=== PATIENT | male | born 1995 | race African-American/Black ===

== ENCOUNTER 2020-11-10 11:23 | Inpatient (IN) | payer BC, OTHER ==
[2020-11-10] MEDS ORDERED: SODIUM CHLORIDE 1,000 ML IV STA ×2 (11:53→12:28)
[2020-11-10] MEDS ORDERED: ACETAMINOPHEN 1000 MG/100 ML VIAL (NON FORMULARY) IVPB ONE (11:53)
[2020-11-10] MEDS ORDERED: ACETAMINOPHEN INJECTION 100 ML IVPB ONE (12:33)
[2020-11-10 13:45] LABS: BASO % 0.6 % (0-2.0); HEMATOCRIT 44.7 % (35.4-49); HEMOGLOBIN 15.2 GM/dL (11.7-16.9); LYMPH % 6.7 % (8-40); MCH 29.9 pg (25.7-33.7); MEAN PLT VOLUME 11.2 fl (7.5-11.1); MONO % 10.1 % (3.8-10.2); NEUT % 82.6 % (42.8-82.8); PLATELET COUNT 83 K/MM3 (134-434); RBC 5.08 M/mm3 (4.00-5.60); RDW 14.3 % (11.9-15.9); WHITE BLOOD COUNT 10.5 K/mm3 (4.0-10.0)
[2020-11-10 13:54] LABS: CHLORIDE 100 mmol/L (98-107); SODIUM 135 mmol/L (136-145)
[2020-11-10 13:55] LABS: INR 1.45 (0.83-1.09); PROTHROMBIN TIME (PATIENT) 17.3 SEC (9.7-13.0)
[2020-11-10 13:57] LABS: ACTIVATED PTT 32.1 SECONDS (25.2-36.5); ALBUMIN 4.3 g/dl (3.4-5.0); ANION GAP 11 MMOL/L (8-16); CALCIUM 9.2 mg/dL (8.5-10.1); CO2 24 mmol/L (21-32); GLUCOSE,RANDOM 99 mg/dL (74-106)
[2020-11-10 14:00] LABS: BILIRUBIN,DIRECT 0.6 mg/dL (0.0-0.2); CREATININE 1.3 mg/dL (0.55-1.3); SGOT/AST 34 U/L (15-37); SGPT/ALT 40 U/L (13-61)
[2020-11-10 14:01] LABS: BILIRUBIN,TOTAL 3.7 mg/dL (0.2-1)
[2020-11-10 14:02] LABS: LDH 310 U/L (87-246); TOT PROT 7.9 g/dl (6.4-8.2)
[2020-11-10 14:03] LABS: ALK PHOS 77 U/L (45-117)
[2020-11-10 14:04] LABS: LACTIC ACID 2.5 mmol/L (0.4-2.0)
[2020-11-10 14:49] LABS: URINE APPEARANCE CLEAR; URINE BILIRUBIN NEGATIVE (NEGATIVE); URINE COLOR YELLOW; URINE GLUCOSE (UA) NEGATIVE (NEGATIVE); URINE KETONE NEGATIVE (NEGATIVE); URINE LEUK ESTERASE NEGATIVE (NEGATIVE); URINE NITRITE NEGATIVE (NEGATIVE); URINE PROTEIN NEGATIVE (NEGATIVE); URINE UROBILINOGEN 0.2 mg/dL (0.2-1.0)
[2020-11-10] MEDS ORDERED: SODIUM CHLORIDE 1,000 ML IV SCH (16:45)
[2020-11-10 17:40] LABS: LACTIC ACID 2.2 mmol/L (0.4-2.0)
[2020-11-10] MEDS ORDERED: DOXYCYCLINE HYCLATE 100 MG CAPSULE PO ONE (18:15)
[2020-11-10] MEDS ORDERED: PT OWN MED DRAWER 7, Y5N ONE (18:15)
[2020-11-10] MEDS: DOXYCYCLINE HYCLATE 100 MG CAPSULE PO SCH (18:21)
[2020-11-10] MEDS ORDERED: CEPHALEXIN MONOHYDRATE 500 MG CAPSULE (UD) ONE (18:44)
[2020-11-10 23:15] VITALS: BMI 23.3
[2020-11-11 08:08] LABS: HEMATOCRIT 37.7 % (35.4-49); HEMOGLOBIN 12.9 GM/dL (11.7-16.9); MCH 30.3 pg (25.7-33.7); MCHC 34.3 g/dl (32.0-35.9); MEAN CELL VOLUME 88.2 fl (80-96); MEAN PLT VOLUME 11.4 fl (7.5-11.1); PLATELET COUNT 68 K/MM3 (134-434); RBC 4.27 M/mm3 (4.00-5.60); RDW 14.5 % (11.9-15.9); WHITE BLOOD COUNT 10.7 K/mm3 (4.0-10.0)
[2020-11-11 08:36] LABS: CALCIUM 8.6 mg/dL (8.5-10.1)
[2020-11-11 08:37] LABS: BLOOD UREA NITROGEN 11.8 mg/dL (7-18)
[2020-11-11 08:38] LABS: ALBUMIN 3.5 g/dl (3.4-5.0)
[2020-11-11 08:40] LABS: BILIRUBIN,DIRECT 0.4 mg/dL (0.0-0.2); CREATININE 0.9 mg/dL (0.55-1.3)
[2020-11-11 08:42] LABS: BILIRUBIN,TOTAL 1.4 mg/dL (0.2-1); TOT PROT 6.4 g/dl (6.4-8.2)
[2020-11-11] MEDS: DOXYCYCLINE HYCLATE 100 MG CAPSULE PO SCH ×2 (09:24→17:43)
[2020-11-11] MEDS ORDERED: ENOXAPARIN NA (PORCINE) 30 MG/0.3 ML DISP.SYRIN SQ SCH (10:00)
[2020-11-11] MEDS ORDERED: ENOXAPARIN NA (PORCINE) 40 MG/0.4 ML DISP.SYRIN SQ SCH (10:00)
[2020-11-11 10:22] LABS: HIV INTERPRETATION NEGATIVE (NEGATIVE)
[2020-11-11] MEDS ORDERED: PT OWN MED DRAWER 7, Y5N ONE ×2 (14:39→16:09)
[2020-11-11] MEDS: FLUTICASONE PROP 0.05% 16 GM NASAL SPRAY NS SCH ×2 (17:21→21:25)
[2020-11-11] MEDS: ACETAMINOPHEN 325 MG TABLET (FP) PO PRN ×2 (18:48→22:00)
[2020-11-12] MEDS: ACETAMINOPHEN 325 MG TABLET (FP) PO PRN ×3 (05:26→21:25)
[2020-11-12 07:41] LABS: HEMATOCRIT 38.2 % (35.4-49); MCH 29.6 pg (25.7-33.7); PLATELET COUNT 70 K/MM3 (134-434); RBC 4.38 M/mm3 (4.00-5.60); RDW 14.4 % (11.9-15.9); WHITE BLOOD COUNT 12.1 K/mm3 (4.0-10.0)
[2020-11-12] MEDS ORDERED: LORATADINE 10 MG TABLET PO ONE (08:10)
[2020-11-12] MEDS ORDERED: ONDANSETRON 4 MG/2 ML VIAL IVPUSH ONE (08:10)
[2020-11-12 08:13] LABS: LACTIC ACID 2.1 mmol/L (0.4-2.0)
[2020-11-12 08:15] LABS: ALBUMIN 3.6 g/dl (3.4-5.0); BLOOD UREA NITROGEN 11.4 mg/dL (7-18)
[2020-11-12] MEDS ORDERED: SODIUM CHLORIDE 1,000 ML IV STA ×2 (08:17→17:45)
[2020-11-12 08:19] LABS: CREATININE 0.9 mg/dL (0.55-1.3)
[2020-11-12 08:20] LABS: BILIRUBIN,TOTAL 4.2 mg/dL (0.2-1)
[2020-11-12] MEDS: DOXYCYCLINE HYCLATE 100 MG CAPSULE PO SCH ×2 (09:01→17:22)
[2020-11-12] MEDS: FLUTICASONE PROP 0.05% 16 GM NASAL SPRAY NS SCH ×2 (09:05→21:24)
[2020-11-12] MEDS ORDERED: PT OWN MED DRAWER 7, Y5N ONE ×2 (15:07→21:09)
[2020-11-12 17:32] LABS: LACTIC ACID 2.5 mmol/L (0.4-2.0)
[2020-11-13] MEDS ORDERED: PT OWN MED DRAWER 7, Y5N ONE ×2 (05:10→08:50)
[2020-11-13 08:10] LABS: BASO % 0.6 % (0-2.0); EOS % 0.1 % (0-4.5); HEMATOCRIT 37.3 % (35.4-49); HEMOGLOBIN 12.7 GM/dL (11.7-16.9); LYMPH % 18.3 % (8-40); MCH 29.8 pg (25.7-33.7); MCHC 34.1 g/dl (32.0-35.9); MEAN CELL VOLUME 87.4 fl (80-96); MEAN PLT VOLUME 11.1 fl (7.5-11.1); MONO % 14.9 % (3.8-10.2); NEUT % 66.1 % (42.8-82.8); PLATELET COUNT 112 K/MM3 (134-434); RBC 4.27 M/mm3 (4.00-5.60); RDW 15.4 % (11.9-15.9); WHITE BLOOD COUNT 10.2 K/mm3 (4.0-10.0)
[2020-11-13 08:54] LABS: CALCIUM 8.7 mg/dL (8.5-10.1)
[2020-11-13 08:56] LABS: ALBUMIN 3.5 g/dl (3.4-5.0); MAGNESIUM 1.9 mg/dL (1.8-2.4)
[2020-11-13 08:58] LABS: BILIRUBIN,TOTAL 2.7 mg/dL (0.2-1); PHOSPHOROUS 3.2 mg/dL (2.5-4.9); TOT PROT 6.9 g/dl (6.4-8.2)
[2020-11-13] MEDS: DOXYCYCLINE HYCLATE 100 MG CAPSULE PO SCH ×2 (09:01→17:27)
[2020-11-13] MEDS: FLUTICASONE PROP 0.05% 16 GM NASAL SPRAY NS SCH ×2 (09:01→21:24)
[2020-11-13] MEDS: LORATADINE 10 MG TABLET PO SCH (09:01)
[2020-11-13] MEDS: POTASSIUM CHLORIDE TABS 20 MEQ TABLET.ER (FP) PO SCH ×2 (12:21→21:23)
[2020-11-13] MEDS: KCL 10 MEQ IVPB 10 MEQ/100 ML INFUS.BAG IVPB SCH (12:29)
[2020-11-14 08:22] LABS: BASO % 1.2 % (0-2.0); EOS % 0.6 % (0-4.5); HEMOGLOBIN 13.4 GM/dL (11.7-16.9); LYMPH % 24.3 % (8-40); MCH 29.6 pg (25.7-33.7); MCHC 34.4 g/dl (32.0-35.9); MEAN PLT VOLUME 10.4 fl (7.5-11.1); MONO % 15.2 % (3.8-10.2); NEUT % 58.7 % (42.8-82.8); PLATELET COUNT 151 K/MM3 (134-434); RBC 4.54 M/mm3 (4.00-5.60); RDW 15.7 % (11.9-15.9); WHITE BLOOD COUNT 10.1 K/mm3 (4.0-10.0)
[2020-11-14 08:58] LABS: ALBUMIN 3.6 g/dl (3.4-5.0); BLOOD UREA NITROGEN 11.8 mg/dL (7-18); CALCIUM 9.1 mg/dL (8.5-10.1)
[2020-11-14 09:01] LABS: CREATININE 0.9 mg/dL (0.55-1.3)
[2020-11-14 09:02] LABS: BILIRUBIN,TOTAL 1.7 mg/dL (0.2-1); TOT PROT 7.3 g/dl (6.4-8.2)
[2020-11-14] MEDS: DOXYCYCLINE HYCLATE 100 MG CAPSULE PO SCH (10:58)
[2020-11-14] MEDS: LORATADINE 10 MG TABLET PO SCH (10:58)
[2020-11-14] MEDS: FLUTICASONE PROP 0.05% 16 GM NASAL SPRAY NS SCH (10:58)
[2020-11-14 12:46] VITALS: BP 117/52; PULSE 92; TEMP 98.4
== END 2020-11-14 14:15 | disposition home or self-care (01) | DRG 720 ==
LOC: SUATTDRO 11:23 → JER 11:23 → JERBED 18:00 → J8W 22:15
PROVIDERS: ADMIT Internal Medicine; ATTEND Internal Medicine
DX: A41.89 Other specified sepsis (principal); E87.2 Acidosis; A00-B99 Certain infectious and parasitic diseases; D69.6 Thrombocytopenia, unspecified; E80.6 Other disorders of bilirubin metabolism; R51.9 Headache, unspecified
CPT/HCPCS: 36415; 71045-TC-FY; 80048; 80053; 80076; 81003; 82248; 82550; 82728; 83605; 83615; 83735; 84100; 84484; 85025; 85027; 85610; 85730; 86140; 87040; 87086; 87207; 87389; 87804; 93005; 93010; 99285-25; C9803; J0131; U0003; U0005